=== PATIENT | female | born 1990 | race Hispanic/Latino ===

== ENCOUNTER 2019-05-04 15:57 | Outpatient (CLI) | payer OTHER ==
--- NOTE | 2019-05-04 16:37 | ULT ---
TRANSABDOMINAL TRANSVAGINAL PELVIC ULTRASOUND DATE:: 05/04/2019 12:00 AM CLINICAL HISTORY: Pelvic pain. COMPARISON: None. TECHNIQUE: Grayscale, color Doppler and spectral Doppler images were obtained of the pelvis see a tra nsabdominal and transvaginal approach FINDINGS: UTERUS: Size: 7.4 x 4.5 x 3.3 cm Mass: There is a 1.6 x 0.8 cm hypoechoic fibroid seen within the intramural region of the posterior u terine body. Cervix: Not well seen Endometrial Thickness: 7 mm. OVARIES: Size: Right measures 3.4 x 2.0 x 3.4 cm; Left measures 3.2 x 2.0 x 2.2 cm Mass: There is a 1.2 cm cyst within the left ovary. Flow: Normal CUL-DE-SAC: No free fluid IMPRESSION: 1. Small intramural fibroid within the posterior uterine body. 2. Small left ovarian follicular cyst measuring 1.2 cm.
== END 2019-05-04 15:58 | disposition home or self-care (01) ==
LOC: BICULT 15:57
PROVIDERS: ATTEND Physician Assistant
DX: R10.2 Pelvic and perineal pain (principal); N93.0 Postcoital and contact bleeding; D25.1 Intramural leiomyoma of uterus; N83.02 Follicular cyst of left ovary
CPT/HCPCS: 76856